=== PATIENT | female | born 1950 | race Caucasian/White ===

== ENCOUNTER → 2020-06-04 | Outpatient (CLI) | payer MEDICARE, OTHER ==
[~2020-06-04] MED LIST: ALPR0.5T7 PO; NONE PER PT
== END | disposition home or self-care (01) ==
LOC: STAR 12:19
PROVIDERS: ATTEND Urology
DX: Z20.828 Contact with and (suspected) exposure to other viral communicable diseases (principal); N20.0 Calculus of kidney
CPT/HCPCS: 87635

== ENCOUNTER 2020-06-09 13:15 | Day surgery (SDC) | payer MEDICARE, OTHER ==
[~2020-06-09] VITALS: Ht 167.6 cm; Wt 56.2 kg
[2020-06-09] MEDS ORDERED: CHLORHEXIDINE 15 ML UDC MM ONE (14:30)
[2020-06-09] MEDS ORDERED: LACTATED RINGERS 1,000 ML IV SCH (14:30)
[2020-06-09] MEDS ORDERED: SUCCINYLCHOLINE 20 MG/ML, 10ML ONE (15:56)
[2020-06-09] MEDS ORDERED: DEXAMETHASONE 4 MG/ML, 1ML ONE (15:56)
[2020-06-09] MEDS ORDERED: PROPOFOL 10 MG/ML, 20ML ONE (15:56)
[2020-06-09] MEDS ORDERED: ONDANSETRON 2MG/ML, 2ML ONE (15:56)
[2020-06-09] MEDS ORDERED: EPHEDRINE 50 MG/ML, 1ML ONE (15:56)
[2020-06-09] MEDS ORDERED: ROCURONIUM 10MG/ML,5ML ONE (15:56)
[2020-06-09] MEDS ORDERED: CEFAZOLIN 1,000 MG ONE (15:56)
[2020-06-09] MEDS ORDERED: MIDAZOLAM 1 MG/ML, 2ML ONE (15:57)
[2020-06-09] MEDS ORDERED: FENTANYL PF 250 MCG/5ML ONE (17:00)
[2020-06-09] MEDS ORDERED: ONDANSETRON 2MG/ML, 2ML IV PRN (17:30)
[2020-06-09] MEDS ORDERED: HYDROmorphone 1 MG/ML, 1ML INJ IVPush PRN (17:30)
[2020-06-09] MEDS ORDERED: EPHEDRINE 50 MG/ML, 1ML IVPush PRN (17:30)
[2020-06-09] MEDS ORDERED: ONDANSETRON 2MG/ML, 2ML IVPush PRN (17:30)
[2020-06-09] MEDS ORDERED: MEPERIDINE/PF 25MG/0.5ML IVPush PRN (17:30)
[2020-06-09] MEDS ORDERED: ACETAMINOPHEN 325 MG TABLET PO PRN (17:30)
[2020-06-09] MEDS ORDERED: FENTANYL PF 100 MCG/2ML IV PRN (17:30)
[2020-06-09] MEDS ORDERED: LABETALOL 5MG/ML, 20ML IV PRN (17:30)
[2020-06-09] MEDS ORDERED: OXYcodone 5 MG/5 ML ORAL.SOL UDC PO PRN (17:30)
[2020-06-09] MEDS ORDERED: ALBUTEROL SULFATE 2.5 MG/3 ML NPPB PRN (17:30)
[2020-06-09] MEDS ORDERED: MIDAZOLAM 1 MG/ML, 2ML IV PRN (17:30)
[2020-06-09] MEDS ORDERED: DIAZEPAM 5 MG/ML, 2ML IVPush PRN (17:30)
[2020-06-09] MEDS ORDERED: DIPHENHYDRAMINE 50 MG/ML, 1ML IVPush PRN (17:30)
[2020-06-09] MEDS ORDERED: HYDROcodone/APAP 5/325 TABLET PO PRN (17:30)
[2020-06-09] MEDS ORDERED: PROMETHAZINE 25 MG/ML, 1ML IVPush PRN (17:30)
[2020-06-09] MEDS ORDERED: hydrALAzine 20 MG/ML, 1ML IV PRN (17:30)
== END 2020-06-09 18:35 | disposition home or self-care (01) ==
LOC: OR 13:15
PROVIDERS: ATTEND Urology
DX: N20.0 Calculus of kidney (principal); F41.9 Anxiety disorder, unspecified; K21.9 Gastro-esophageal reflux disease without esophagitis; Z79.899 Other long term (current) drug therapy
CPT/HCPCS: 50590; J0330; J0690; J1100; J2250; J2405; J2704; J3010; J7120